=== PATIENT | male | born 1990 | race Caucasian/White ===

== ENCOUNTER 2023-01-31 05:48 | Emergency (ER) | payer OTHER ==
[~2023-01-31] VITALS: Ht 170.2 cm; Wt 72.7 kg
[2023-01-31 06:08] VITALS: BP 128/79
[2023-01-31] MEDS ORDERED: SILVER SULFADIAZINE 1% 25 GM CREAM TP ONE (06:30)
[2023-01-31] MEDS ORDERED: IBUP-1492 PO (06:49)
== END 2023-01-31 06:56 | disposition home or self-care (01) ==
LOC: EMS 05:51
DX: T22.212A Burn of second degree of left forearm, initial encounter (principal); F17.210 Nicotine dependence, cigarettes, uncomplicated
CPT/HCPCS: 16020; 99285; Z7502; Z7610